=== PATIENT | female | born 1975 | race African-American/Black ===

== ENCOUNTER 2022-05-09 01:40 | Emergency (ER) | payer OTHER ==
[~2022-05-09] VITALS: Ht 175.3 cm; Wt 86.2 kg
[2022-05-09 01:40] VITALS: BP 133/86
--- NOTE | 2022-05-09 01:42 | NUR ---
PT [facility] BED 6
--- NOTE | 2022-05-09 01:56 | NUR ---
Patient being evaluated by physician at bedside.
[2022-05-09] MEDS ORDERED: ALBUTEROL SULFATE/IPRATROPIU 3 ML SOL IH ONE (02:00)
[2022-05-09] MEDS ORDERED: predniSONE 20 MG TAB PO ONE (02:00)
[2022-05-09] MEDS ORDERED: predniSONE 10 MG TAB ONE ×2 (02:07→02:09)
--- NOTE | 2022-05-09 02:17 | NUR ---
Patient refused COVID-19 and flu swabs test, Dr. Valladares notified.
--- NOTE | 2022-05-09 02:19 | NUR ---
X-Ray at bedside.
--- NOTE | 2022-05-09 02:24 | NUR ---
RT at bedside for breathing treatment.
[2022-05-09 02:44] VITALS: BP 118/72
[2022-05-09] MEDS ORDERED: PRED20TA5 PO ×2 (02:58→09:16)
[2022-05-09] MEDS ORDERED: ALBU0.0912 IH ×2 (02:58→09:16)
[2022-05-09] MEDS ORDERED: AZIT250T4 PO ×2 (02:58→09:16)
--- NOTE | 2022-05-09 03:15 | NUR ---
Patient discharged with v/s stable. Written and verbal after care instructions given and explained. Patient verbalized understanding. Ambulatory with steady gait. All questions addressed prior to discharge. Advised to follow up with PMD.
== END 2022-05-09 03:15 | disposition home or self-care (01) ==
LOC: MED 01:40
DX: J45.901 Unspecified asthma with (acute) exacerbation (principal); J20.9 Acute bronchitis, unspecified; Z88.0 Allergy status to penicillin; Z88.8 Allergy status to other drugs, medicaments and biological substances; Z79.899 Other long term (current) drug therapy
CPT/HCPCS: 71045; 94640; 94760; 99283; J7512; Q0092